=== PATIENT | male | born 1950 | race Caucasian/White ===

== ENCOUNTER 2017-03-09 09:20 | Day surgery (SDC) | payer MEDICARE, BC ==
[2017-03-07 11:25] VITALS: BMI 27.1
[~2017-03-09 09:20] MED LIST: LACTATED RINGERS 1,000 ML IV SCH
[2017-03-09 10:02] VITALS: TEMP 98.5
[2017-03-09] MEDS ORDERED: LIDOCAINE 1% 20 ML VIAL (10MG/ML) FOR IV START INTRADERMA ONE (10:15)
[2017-03-09] MEDS ORDERED: PROPOFOL 10 MG/ML 20 ML VIAL IV ONE (12:17)
--- NOTE | 2017-03-09 12:27 | P.GSHP ---
History of Present Illness H&P Date: 03/09/17 Chief Complaint: GI bleed This is a 66-year-old male referred from that [facility]. Patient resents today for EGD colonoscopy. He is found have evidence of blood in his stool. Past Medical History Past Medical History: Hypertension Additional Past Medical History / Comment(s): IRREGULAR HEART RATE History of Any Multi-Drug Resistant Organisms: None Reported Past Surgical History: Appendectomy, Hernia Repair, Joint Replacement, Orthopedic Surgery Additional Past Surgical History / Comment(s): RT CHINO X 2. BECKY PROCEDURES. TENDON REPAIRS. EXPLORATORY LAP. Past Anesthesia/Blood Transfusion Reactions: No Reported Reaction Smoking Status: Current some day smoker - Past Family History Mother Family Medical History: Cancer Medications and Allergies Home Medications Medication Instructions Recorded Confirmed Type Aspirin [Adult Low Dose Aspirin EC] 81 mg PO DAILY 03/07/17 03/09/17 History Atenolol [Tenormin] 25 mg PO DAILY 03/07/17 03/09/17 History Rosuvastatin Calcium [Crestor] 40 mg PO HS 03/07/17 03/09/17 History Allergies Allergy/AdvReac Type Severity Reaction Status Date / Time No Known Allergies Allergy Verified 03/07/17 11:19 Surgical - Exam Vital Signs Temp Pulse Resp BP Pulse Ox 98.5 F 50 L 16 165/93 98 03/09/17 09:58 03/09/17 09:58 03/09/17 09:58 03/09/17 09:58 03/09/17 09:58 - General well developed, no distress - Eyes PERRL - ENT normal pinna - Neck no masses - Respiratory normal expansion - Cardiovascular Rhythm: regular - Abdomen Abdomen: soft, non tender Assessment and Plan Plan: GI bleed. We'll perform EGD and colonoscopy.
--- NOTE | 2017-03-09 12:40 | P.OP ---
Date of Procedure: 03/09/17 Preoperative Diagnosis: GI bleed Postoperative Diagnosis: Antral gastritis Normal colon Procedure(s) Performed: EGD Colonoscopy Anesthesia: MAC Surgeon: Carlos Prado Pathology: other (Antrum) Condition: stable Disposition: PACU Description of Procedure: PROCEDURE: The patient was placed on the endoscopy table in the lateral position. Digital rectal examination was performed which revealed no abnormalities. The prostate was symmetrical without nodules. Flexible colonoscope was then placed in the patient's anus and passed throughout the entire colon. The ileocecal valve was visualized. The cecum, ascending, transverse, descending and sigmoid colon were normal. The rectum was normal as well. There were no masses, polyps or diverticula noted in the entire colon. Next, the gastroscope placed oropharynx passed in the esophagus and stomach. The scope was then placed through the pylorus. The first and second portion of the duodenum appeared normal. Scope was then brought back the antrum and this appeared mildly inflamed. A biopsies performed. The scope was unretroflexed and remainder stomach appeared normal. There was no hiatal hernia. The GE junction was at 440 cm. The distal esophagus appeared normal. The proximal esophagus appeared normal. Scope was withdrawn.
[2017-03-09 12:57] VITALS: RESP 16
[2017-03-09 13:16] VITALS: BP 138/77; PULSE 51
== END 2017-03-09 13:35 | disposition home or self-care (01) ==
LOC: ORWHC2ENDO 09:20
PROVIDERS: ATTEND Surgery
DX: K29.60 Other gastritis without bleeding (principal); K92.2 Gastrointestinal hemorrhage, unspecified; I10 Essential (primary) hypertension; F17.200 Nicotine dependence, unspecified, uncomplicated; Z79.82 Long term (current) use of aspirin; Z79.899 Other long term (current) drug therapy
CPT/HCPCS: 88305; 45380; 43239; J2704

== ENCOUNTER → 2017-12-24 | Day surgery (SDC) | payer MEDICARE, BC ==
[2017-12-19 11:01] VITALS: BMI 27.1
[~2017-12-24] MED LIST changes: +ALPRAZolam 0.25 MG TAB PO PRN; +ALPRAZolam 0.5 MG TAB PO PRN; +ASPIRIN 325 MG TAB PO STA; +ATENOLOL 25 MG TAB PO SCH; +ATORVASTATIN 80 MG TAB PO STA; +FERROUS SULFATE 325 MG TAB PO SCH; +HEPARIN SODIUM 1,000 UN/ML (10ML VL) IV ONE; +HEPARIN SODIUM 1,000 UN/ML (10ML VL) ONE; +IOPAMIDOL-370 125ML BTL INJ ONE; -LACTATED RINGERS 1,000 ML IV SCH; +LIDOCAINE 2% SYG (PF) 100 MG/5 ML MISCELLANE ONE; +MIDAZOLAM 2 MG/2 ML VIAL ONE; +NITROGLYCERIN SL TABS 0.4 MG TAB SUBLINGUAL PRN; +NON-FORMULARY DRUG (Aspirin [Adult Low Dose Aspirin Ec] 81 MG) PO SCH; +NON-FORMULARY DRUG (Celecoxib 200 MG) PO SCH; +NON-FORMULARY DRUG (Rosuvastatin Calcium [Crestor] 40 MG) PO SCH; +NON-FORMULARY DRUG (Ubidecarenone [Co Q-10] 100 MG) PO SCH; +RX INFO: IV CONTRAST WAS GIVEN 1 EACH MISC MISCELLANE PRN; +SODIUM CHLORIDE 0.9% 1,000 ML IV SCH; +SODIUM CHLORIDE 0.9% 1,000 ML in EMPTY BAG 1 BAG IV ONE; +VERAPAMIL 2.5 MG/ML 2 ML AMP ONE; +fentaNYL (PF) 50 MCG/ML 2 ML AMP IV ONE; +fentaNYL (PF) 50 MCG/ML 2 ML AMP ONE
[2017-12-24 07:00] VITALS: TEMP 97.8
[2017-12-24] MEDS: MIDAZOLAM 2 MG/2 ML VIAL IV ONE ×2 (07:58→08:18)
[2017-12-24] MEDS: VERAPAMIL SYRINGE (5 MG/10 ML) INTRAARTER ONE ×2 (07:59→08:04)
[2017-12-24 09:06] VITALS: RESP 18
--- NOTE | 2017-12-24 10:17 | CC ---
CARDIAC CATHETERIZATION REPORT Mr. Campa is a 67-year-old male with known history of hyperlipidemia, history of coronary artery disease, status post stenting of the left circumflex in 1996, who has been having some symptoms of dyspnea on exertion. He underwent a myocardial perfusion imaging that revealed inferobasal and basal lateral wall defect of small size. In view of his symptoms and his history, recommendations were made regarding cardiac catheterization. The procedure as well as the risks and the complications were discussed with the patient who is in full understanding and agreement. 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 Using Xylocaine anesthesia in the Seldinger technique, a a 6-Slovak sheath was introduced in the right radial artery. Selective right and left coronary angiography performed using 5-Slovak, 3.5 bend right and left Yuliana catheter and a 5-Slovak multipurpose catheter. Images of the coronary arteries including hemiaxial views were obtained. Following that, the multipurpose catheter was used to cross the aortic valve and pressures were calculated. Following that, catheter and sheath were removed. Hemostasis was obtained with deployment of a TR band. There was no immediate complication. Patient was returned to his room in stable condition. Of note, the patient received 4500 units of intravenous heparin as well as intra-arterial verapamil. FINDINGS: FLUOROSCOPY: There is calcification involving all the coronary arteries. LEFT MAIN: This is almost nonexistent vessel that bifurcates right away to LAD and left circumflex. LAD: This is a calcified vessel, reaching toward the apex with a wraparound apex segment giving rise to small diagonal branch. The LAD proximally is calcified has 50% plaque eccentric. The rest of the vessel has no high-grade stenosis. LEFT CIRCUMFLEX: This is a nondominant vessel giving rise to 2 large obtuse marginal branches. The left circumflex has diffuse intimal disease with area of stenosis up to 30% to 40% without any evidence of high-grade stenosis. RIGHT CORONARY ARTERY: This is a dominant small caliber vessel diffusely diseased, has diffuse intimal disease without any evidence of high-grade stenosis. LEFT VENTRICULOGRAM: Left ventriculogram was not performed. HEMODYNAMICS: There was no gradient across the aortic valve. The left ventricular end- diastolic pressure was 16 to 18 mmHg. CONCLUSION: 1. Calcified coronary arteries. 2. Moderate plaque in the proximal left anterior descending artery. 3. Mild to moderate disease in the circumflex and the right coronary artery. RECOMMENDATION: In view of finding anatomy, I recommend continue medical therapy with aggressive coronary risk modification that has been initiated. Those findings and recommendation were discussed with the patient and his family and they are in full understanding and agreement. DURATION OF PROCEDURE: 30 minutes. RONNY / GEORGIE: [id number] / SHARIF
--- NOTE | 2017-12-24 10:23 | LTR ---
December 24, 2017 Re: Franco Campa Dear Dr. Thornton: I had the opportunity to perform cardiac catheterization on Mr. Campa on at [facility] on the 24 of December and a full copy of the procedure note will be forwarded to you. In brief, he was found to have mild to moderate triple-vessel coronary artery disease without any evidence of high-grade stenosis and based on those findings I recommend continuing medical therapy with aggressive coronary risk modification you have initiated. Thank you again for allowing me the opportunity to participate in his care. Please feel free to call for any questions. Sincerely yours, MD VINNIE ChampionL / CATRACHON: [id number] /
[2017-12-24 10:35] VITALS: BP 112/64; PULSE 47
== END | disposition home or self-care (01) ==
LOC: CATHCVL 06:13
PROVIDERS: ATTEND Internal Medicine Interventional Cardiology
DX: I25.10 Atherosclerotic heart disease of native coronary artery without angina pectoris (principal); R94.39 Abnormal result of other cardiovascular function study; Z95.5 Presence of coronary angioplasty implant and graft; E78.2 Mixed hyperlipidemia; F17.290 Nicotine dependence, other tobacco product, uncomplicated; Z79.82 Long term (current) use of aspirin; Z79.899 Other long term (current) drug therapy
CPT/HCPCS: 93458; C1894; C1769; J2250; J2001; J3010; J1644; Q9967

== ENCOUNTER → 2019-01-04 | Outpatient (CLI) | payer MEDICARE, BC ==
[2019-01-04 13:17] LABS: HCT 39.9 % (39.0-53.0); HGB 13.3 gm/dL (13.0-17.5); MCH 30.8 pg (25.0-35.0); MCHC 33.4 g/dL (31.0-37.0); MCV 92.1 fL (80.0-100.0); Mean Platelet Volume 7.3; Platelet Count 161 k/uL (150-450); RBC 4.33 m/uL (4.30-5.90); RDW 13.3 % (11.5-15.5); WBC 5.4 k/uL (3.8-10.6)
[2019-01-04 13:20] LABS: Appearance,Urine Clear (Clear); Bilirubin,Urine Negative (Negative); Blood,Urine Negative (Negative); Color,Urine Yellow; Glucose,Urine (UA) Negative (Negative); Ketones,Urine Negative (Negative); Leukocyte Esterase,Urine Negative (Negative); Nitrite,Urine Negative (Negative); PH, Urine 5.5 (5.0-8.0); Protein,Urine Negative (Negative); Specific Gravity,Urine 1.025 (1.001-1.035); Urobilinogen,Urine <2.0 mg/dL (<2.0)
[2019-01-04 13:37] LABS: INR 0.9 (<1.2); Partial Thromboplastin Time 23.7 sec (22.0-30.0); Prothrombin Time 10.1 sec (9.0-12.0)
[2019-01-04 23:32] LABS: African American GFR (CKD) 104.9 (60.0-200.0); Albumin 4.2 g/dL (3.80-4.90); Albumin/Globulin Ratio 2.63 (1.60-3.17); Anion Gap 7.3 mmol/L (4.00-12.00); BUN/Creat Ratio 21.25 Ratio (12.00-20.00); Calcium 8.8 mg/dL (8.7-10.3); Carbon Dioxide 25.7 mmol/L (21.6-31.8); Globulin 1.6 g/dL (1.6-3.3); Potassium 4.2 mmol/L (3.5-5.5); Total Bilirubin 0.8 mg/dL (0.2-1.2); Total Protein 5.8 g/dL (6.2-8.2)
== END ==
LOC: LABMAIN 12:29
PROVIDERS: ATTEND Orthopaedic Surgery
DX: Z01.812 Encounter for preprocedural laboratory examination (principal)
CPT/HCPCS: 36415; 80053; 81003; 85027; 85610; 85730; 87070

== ENCOUNTER 2019-01-28 05:31 | Day surgery (SDC) | payer MEDICARE, BC ==
[2019-01-22 10:38] VITALS: BMI 27.8
[~2019-01-28 05:31] MED LIST changes: +ACETAMINOPHEN TAB 500 MG TAB PO ONE; -ALPRAZolam 0.25 MG TAB PO PRN; -ALPRAZolam 0.5 MG TAB PO PRN; -ASPIRIN 325 MG TAB PO STA; -ATENOLOL 25 MG TAB PO SCH; -ATORVASTATIN 80 MG TAB PO STA; +DEXAMETHASONE SOD PHOSPHATE 10 MG/ML 1 ML VIAL IV ONE; -FERROUS SULFATE 325 MG TAB PO SCH; -HEPARIN SODIUM 1,000 UN/ML (10ML VL) IV ONE; -HEPARIN SODIUM 1,000 UN/ML (10ML VL) ONE; +HYDROmorphone 0.5 MG/0.5 ML SYRINGE IVP PRN; -IOPAMIDOL-370 125ML BTL INJ ONE; +LACTATED RINGERS 1,000 ML IV SCH; +LIDOCAINE 1% 20 ML VIAL (10MG/ML) FOR IV START INTRADERMA PRN; -LIDOCAINE 2% SYG (PF) 100 MG/5 ML MISCELLANE ONE; +MELOXICAM 7.5 MG TAB PO ONE; +MIDAZOLAM 2 MG/2 ML VIAL IV PRN; -MIDAZOLAM 2 MG/2 ML VIAL ONE; -NITROGLYCERIN SL TABS 0.4 MG TAB SUBLINGUAL PRN; -NON-FORMULARY DRUG (Aspirin [Adult Low Dose Aspirin Ec] 81 MG) PO SCH; -NON-FORMULARY DRUG (Celecoxib 200 MG) PO SCH; -NON-FORMULARY DRUG (Rosuvastatin Calcium [Crestor] 40 MG) PO SCH; -NON-FORMULARY DRUG (Ubidecarenone [Co Q-10] 100 MG) PO SCH; +ONDANSETRON 4 MG/2 ML VIAL IVP ONE; -RX INFO: IV CONTRAST WAS GIVEN 1 EACH MISC MISCELLANE PRN; +SCOPOLAMINE 1.5MG/72HR PATCH TRANSDERM ONE; -SODIUM CHLORIDE 0.9% 1,000 ML IV SCH; -SODIUM CHLORIDE 0.9% 1,000 ML in EMPTY BAG 1 BAG IV ONE; +TRANEXAMIC ACID 1,000 MG in SODIUM CHLORIDE 0.9% 100 ML IVPB ONE; -VERAPAMIL 2.5 MG/ML 2 ML AMP ONE; -fentaNYL (PF) 50 MCG/ML 2 ML AMP IV ONE; -fentaNYL (PF) 50 MCG/ML 2 ML AMP ONE
[2019-01-28] MEDS ORDERED: ROPIVACAINE 246.25 MG, EPINEPHrine 0.5 MG, KETOROLAC 30 MG, cloNIDine HCL/PF 80 MCG, WA... MISCELLANE ONE ×5 (06:06)
[2019-01-28] MEDS ORDERED: fentaNYL (PF) 50 MCG/ML 2 ML AMP IV ONE (06:45)
[2019-01-28] MEDS ORDERED: MIDAZOLAM (PF) 2 MG/2 ML VIAL IV ONE (06:45)
[2019-01-28] MEDS ORDERED: MAGNESIUM HYDROXIDE 2,400 MG/10 ML CUP PO PRN (06:56)
[2019-01-28] MEDS ORDERED: NA PHOS,M-B/NA PHOS,DI-BA 133 ML ENEMA RECTAL PRN (06:56)
[2019-01-28] MEDS ORDERED: DIAZEPAM 5 MG TAB PO PRN (06:56)
[2019-01-28] MEDS ORDERED: NALOXONE 0.4 MG/ML 1 ML VIAL IV PRN (06:56)
[2019-01-28] MEDS ORDERED: BISACODYL 10 MG SUPP RECTAL PRN (06:56)
[2019-01-28] MEDS ORDERED: ONDANSETRON 4 MG/2 ML VIAL IVP PRN (06:56)
[2019-01-28] MEDS ORDERED: hydrOXYzine PAMOATE 25 MG CAP PO PRN (06:56)
[2019-01-28] MEDS ORDERED: HYDROmorphone 0.5 MG/0.5 ML SYRINGE IVP PRN ×3 (06:56)
[2019-01-28] MEDS ORDERED: traMADol 50 MG TAB PO PRN (06:59)
[2019-01-28] MEDS ORDERED: KETAMINE 10 MG/ML 20 ML VIAL ONE (07:01)
[2019-01-28] MEDS ORDERED: TRANEXAMIC ACID 1,000 MG/10 ML VIAL ONE (07:01)
[2019-01-28] MEDS ORDERED: PROPOFOL 10 MG/ML 20 ML VIAL IV ONE (07:01)
[2019-01-28] MEDS ORDERED: SODIUM CHLORIDE 0.9% 100 ML BAG ONE (07:01)
[2019-01-28] MEDS ORDERED: ceFAZolin 3,000 MG in SODIUM CHLORIDE 0.9% IRRIGATIO 3,000 ML IRRIGATION ONE (07:06)
[2019-01-28] MEDS ORDERED: ROPIVACAINE 0.2%-NS ON-Q PUMP 1,090 MG, EMPTY PAIN BALL 1 EACH MISCELLANE PRN (08:23)
[2019-01-28] MEDS ORDERED: LACTATED RINGERS 1,000 ML IV ONE (08:27)
--- NOTE | 2019-01-28 08:30 | P.ANPRN ---
Procedure Note - Anesthesia - Nerve Block Performed Left Adductor Canal Infusion Time Out Performed: Yes Date of Procedure: 01/28/19 Procedure Start Time: 06:45 Procedure Stop Time: 06:53 Location of Patient Procedure: PreOp Indication: Acute Post-Operative Pain Sedation Type: Sedate with meaningful contact maintained Preparation: Sterile Prep, Sterile Dressing Position: Supine Catheter: Indwelling Needle Types: Pajunk Needle Gauge: 18 Technique: Ultrasound Injectate: 0.5% Ropivacaine (see comment for volume) (20ml w/ decadron 10 mg)
--- NOTE | 2019-01-28 08:44 | P.OP ---
Date of Procedure: 01/28/19 Preoperative Diagnosis: Severe osteoarthritis left knee Postoperative Diagnosis: Severe osteoarthritis left knee Procedure(s) Performed: Left total knee arthroplasty using the Zeristae patient specific guides Implants: Carrasquillo and Nephew Journey II CR Oxinium cruciate retaining femoral component size 6, left Carrasquillo & Nephew Journey left nonporous tibial baseplate size 6 Carrasquillo & Nephew Journey II, XLPE CR articular insert, size 9 mm, Size 5-6 left Carrasquillo & Nephew Journey BCS resurfacing oval patellar component, 35 mm All components were cemented using Palacos R bone cement. [employer] patient specific guides The articulation is Oxinium on polyethylene. Anesthesia: spinal Surgeon: Morgan Soto Reliability Specialist #1: Marcella Hewitt Estimated Blood Loss (ml): 50 Pathology: other (Bone and cartilage) Condition: stable Disposition: PACU Indications for Procedure: After failure of conservative treatment we discussed the surgical and nonsurgical treatment options at length. Patient wishes to proceed with a total knee arthroplasty. Complications specific to this procedure were discussed at length, including but not limited to infection, bleeding, stiffness, and nerve injury. Patient is aware of all these complications and informed consent was obtained Operative Findings: The operative findings are consistent with severe osteoarthritis the left knee Description of Procedure: Patient was seen in the preoperative area consent was reviewed and operative site was marked with a skin marker. An adductor canal pain catheter was placed by anesthesia in the preoperative area. Patient was then brought to the operating room and given preoperative antibiotics intravenously. A spinal anesthetic was administered by the anesthesia department. A tourniquet was placed on the upper thigh and the lower extremity was prepped and draped in usual sterile fashion. A gram of transexamic acid was given. A universal timeout was then performed which confirmed the patient's name, surgical site, ALLERGIES, and consent. The lower extremity was then exsanguinated and tourniquet was inflated to 250 mmHg. A standard and anterior midline approach to the knee was performed. The skin and subcutaneous tissue was dissected down to the patellar tendon. A medial parapatellar arthrotomy was then performed. The knee was then extended, the patellar was everted, and the knee was again flexed. Anterior horns of both menisci were excised, and a release was performed to the posterior medial aspect of the knee. On gross visual inspection, there was complete loss of articular cartilage in the medial and patellofemoral joint spaces. There was also significant cartilage damage in the lateral compartment. There were multiple periarticular osteophytes. The patient specific guide was placed on the distal femur, and pinned in place. Using the patient specific guide, the distal femoral cut was performed. The cutting block was then removed and the cut was checked for flatness. The appropriate 5-in-1 cutting block was then pinned in place through the holes that were drilled through the patient specific guide. The anterior condyles were cut without notching. The posterior and chamfer cuts were performed while protecting the collateral ligaments. The cutting block was then removed. Attention was then directed to the tibia. The remaining ACL was removed with a Ronguer, and the tibia was then gently subluxed forward with a large bent knee retractor. Any remaining menisci was excised. The posterior lateral corner was cauterized in order to cauterize the lateral geniculate artery. The patient specific guide for the tibia was then placed and was held in place with pins. Pinholes were then placed for rotation of the tibial component as well. Proximal tibia was then cut and sized. Next trials were then placed with the appropriate-sized insert. The knee was able to fully extend and flex to 130 and was stable throughout all range of motion. The knee was then extended, patella everted. Patella was then measured, and then using an osteotomy guide, the patella was cut at the appropriate level. The patella was then measured and drilled and the patella trial was then placed. The knee was then taken through range of motion with the patella trial and the patella tracked normally. The knee was then extended patella trial was then removed and the patella was everted. Knee was then flexed and lug holes were drilled through the femoral trial and the femoral trial was then removed. The tibial was then exposed, and the tibial broach guide was then pinned in place after it was set for the appropriate rotation to allow for the most coverage without overhang. The tibia was then reamed and broached. The cut surfaces of bone were then irrigated with pulsatile lavage. The posterior structures were injected with the ropivacaine solution. The knee was also irrigated with Irrisept solution. The components were then opened, the c ement was mixed, and the components were then cemented in place. The cement was allowed to harden with the knee in full extension. While the cement was hardening, the remaining soft tissues were then injected with a ropivacaine solution, which consisted of 246.25 mg of ropivacaine, 0.5 mg of epinephrine, 30 mg of Toradol, 80 g of clonidine, and 48.45 mL of sterile water, for a total of 100 mL of fluid injected. After the cemented hardened. The tourniquet was released, and hemostasis was obtained. A second gram of transexamic acid was given. The knee was again irrigated. The knee was again taken through range of motion and found to be stable throughout all range of motion of 0-130, and the patella tracked normally. The fascia was then closed with #2 strata fix suture. The subcutaneous tissue was closed with 3-0 Vicryl and 3-0 strata fix. Dermabond glue was used for the skin and placed with the knee in flexion. The patient was placed in a sterile silver dressing. Patient was then transferred to recovery room in stable condition. The anesthetic assistant ALFA Ng was required due the complexity surgery and the need for a skilled surgical resident. She assisted in positioning, draping, retraction, and closure of the wound.
--- NOTE | 2019-01-28 09:48 | XR ---
EXAMINATION TYPE: XR knee limited LT DATE OF EXAM: 01/28/2019 CLINICAL HISTORY: Left knee pain and arthritis status post total knee replacement. TECHNIQUE: Portable AP and crosstable lateral views of the left knee are obtained immediately postop eratively. COMPARISON: None FINDINGS: Metallic hardware from total left knee arthroplasty is seen and appears satisfactory in al ignment and position. There is evidence of recent surgery with diffuse subcutaneous gas and soft tis durga swelling noted. IMPRESSION: METALLIC HARDWARE FROM TOTAL LEFT KNEE ARTHROPLASTY IS SATISFACTORY IN ALIGNMENT.
[2019-01-28] MEDS: SODIUM CHLORIDE 0.9% 1,000 ML IV SCH ×2 (10:24→16:01)
--- NOTE | 2019-01-28 13:14 | P.CONS ---
History of Present Illness - Reason for Consult Recommendation regarding antihypertensive medications - History of Present Illness Patient was admitted for elective left Opacities is no known surgeries passing is clinically doing well no pain. Patient is on atenolol for his cardiac arrhythmia and patient heart rate is always and 9 hypertension 55 has been taking this medication for long time patient had a coronary artery disease with stenting 20 years ago. Review of Systems REVIEW OF SYSTEMS: CONSTITUTIONAL: No fever, no malaise, no fatigue. HEENT: No recent visual problems or hearing problems. Denied any sore throat. CARDIOVASCULAR: No chest pain, orthopnea, PND, no palpitations, no syncope. PULMONARY: No shortness of breath, no cough, no hemoptysis. GASTROINTESTINAL: No diarrhea, no nausea, no vomiting, no abdominal pain. NEUROLOGICAL: No headaches, no weakness, no numbness. HEMATOLOGICAL: Denies any bleeding or petechiae. GENITOURINARY: Denies any burning micturition, frequency, or urgency. MUSCULOSKELETAL/RHEUMATOLOGICAL: Denies any joint pain, swelling, or any muscle pain. ENDOCRINE: Denies any polyuria or polydipsia. The rest of the 14-point review of systems is negative. 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 abd hernia X 2, R Hip replacement. BECKY PROCEDURES. TENDON REPAIRS. EXPLORATORY LAP. gastric resection Past Anesthesia/Blood Transfusion Reactions: No Reported Reaction Additional Past Anesthesia/Blood Transfusion Reaction / Comm: no hx blood transfusion Date of Last Stent Placement:: ? Past Psychological History: No Psychological Hx Reported Smoking Status: Former smoker Past Alcohol Use History: Occasional Additional Past Alcohol Use History / Comment(s): QUIT SMOKING CIGARETTES 1972. NOW SMOKES CIGARS ON OCCASSION Past Drug Use History: None Reported - Past Family History Mother Family Medical History: Cancer Additional Family Medical History / Comment(s): liver CA Medications and Allergies Home Medications Medication Instructions Recorded Confirmed Type Aspirin [Adult Low Dose Aspirin EC] 81 mg PO QAM 03/07/17 01/28/19 History Atenolol [Tenormin] 25 mg PO QAM 03/07/17 01/28/19 History Rosuvastatin Calcium [Crestor] 40 mg PO HS 03/07/17 01/28/19 History Celecoxib [CeleBREX] 200 mg PO SUMOWEFR 12/19/17 01/28/19 History Ferrous Sulfate [Feosol] 325 mg PO MOTH 12/19/17 01/28/19 History Ubidecarenone [Co Q-10] 100 mg PO QAM 12/19/17 01/28/19 History Multivitamins, Thera [Multivitamin 1 tab PO DAILY 01/22/19 01/28/19 History (formulary)] Allergies Allergy/AdvReac Type Severity Reaction Status Date / Time No Known Allergies Allergy Verified 01/28/19 05:54 Physical Exam Vitals: Vital Signs Temp Pulse Pulse Resp BP BP Pulse Ox 01/28/19 12:15 49 L 135/78 97 01/28/19 12:00 49 L 129/73 93 L 01/28/19 11:45 45 L 126/74 95 01/28/19 11:30 49 L 129/71 93 L 01/28/19 11:15 44 L 124/73 95 01/28/19 11:00 49 L 129/78 95 01/28/19 10:45 47 L 132/81 95 01/28/19 10:30 49 L 133/74 96 01/28/19 10:15 97.7 F 46 L 14 123/71 97 01/28/19 09:47 50 L 18 96 01/28/19 09:32 48 L 18 118/71 97 01/28/19 09:16 52 L 16 114/62 94 L 01/28/19 09:04 96.7 F L 54 L 12 116/62 94 L 01/28/19 06:58 53 L 16 155/86 98 01/28/19 06:15 96.9 F L 50 L 16 154/77 97 Intake and Output 01/27/19 01/28/19 01/28/19 22:59 06:59 14:59 Intake Total 200 1151 Output Total 50 Balance 200 1101 Intake: IV 200 1151 Output: Estimated Blood Loss 50 PHYSICAL EXAMINATION: GENERAL: The patient is alert and oriented x3, not in any acute distress. Well developed, well nourished. HEENT: Pupils are round and equally reacting to light. EOMI. No scleral icterus. No conjunctival pallor. Normocephalic, atraumatic. No pharyngeal erythema. No thyromegaly. CARDIOVASCULAR: S1 and S2 present. No murmurs, rubs, or gallops. PULMONARY: Chest is clear to auscultation, no wheezing or crackles. ABDOMEN: Soft, nontender, nondistended, normoactive bowel sounds. No palpable organomegaly. MUSCULOSKELETAL: Left knee is post surgically packed EXTREMITIES: No cyanosis, clubbing, or pedal edema. NEUROLOGICAL: Gross neurological examination did not reveal any focal deficits. SKIN: No rashes. Assessment and Plan Plan: -Hypertension with a history of cardiac exam because of which patient is on atenolol which will be resumed. blood pressures fairly stable. -Hyperlipidemia Hyperlipidemia Coronary artery disease his baby aspirin is being held and patient is on DVT prophylaxis with the full strength aspirin twice a day. -left knee arthroplasty pain management due to prophylaxis as per primary service
[2019-01-28 20:21] VITALS: RESP 18
[2019-01-28] MEDS: ASPIRIN 325 MG TAB PO SCH (20:59)
[2019-01-28] MEDS ORDERED: SENNOSIDES-DOCUSATE SODIUM 1 EACH TAB PO SCH (21:00)
[2019-01-28] MEDS ORDERED: ATORVASTATIN 80 MG TAB PO SCH (21:00)
[2019-01-29] MEDS: traMADol 50 MG TAB PO PRN ×2 (06:00→12:14)
[2019-01-29 07:44] VITALS: TEMP 98.7
--- NOTE | 2019-01-29 08:17 | P.DS ---
Providers Expected date of discharge: 01/29/19 Attending physician: Morgan Soto Consults: 01/28/19 06:56 Consult Physician Routine Consulting Provider: Stephanie Osorio Consult Reason/Comments: medical management Do you want consulting provider notified?: Yes Primary care physician: Natalie Thornton - Discharge Diagnosis(es) (1) Osteoarthritis of left knee Current Visit: Yes Status: Acute (2) Status post total left knee replacement Current Visit: Yes Status: Acute Hospital Course: This is a 68-year-old male with known history of degenerative arthritis of the left knee. The patient presents for evaluation. After discussion and consideration patient elects to proceed with total knee arthroplasty. The patient is seen preoperatively by Dr. Soto and medically cleared for surgery by their primary care physician. Patient is admitted to [facility] on 01/28/2019 for total knee arthroplasty. The procedures performed without complication or sequelae. The patient is doing well postoperatively. Labs and vital signs are stable on day of discharge. On day of discharge patient's knee incision is healing well. There is minimal erythema. There is no drainage noted at this time. There is minimal soft tissue swelling to the knee. Patient has full foot and ankle motion without difficulty or pain. Calf is soft and nontender to palpation. Neurovascular status to the left lower extremity is intact. Patient is discharged home in good condition. Opioid start talking form is reviewed and signed at patient bedside. Please see med rec for accurate list of home medications. Plan - Discharge Summary Discharge Rx Participant: No New Discharge Prescriptions: New Aspirin 325 mg PO BID #60 tab Sennosides [Senokot] 1 tab PO BID #60 tablet traMADol HCl [Ultram] 1 - 2 tab PO Q6H PRN #56 tab PRN Reason: Pain No Action Rosuvastatin Calcium [Crestor] 40 mg PO HS Atenolol [Tenormin] 25 mg PO QAM Aspirin [Adult Low Dose Aspirin EC] 81 mg PO QAM Ferrous Sulfate [Feosol] 325 mg PO MOTH Celecoxib [CeleBREX] 200 mg PO SUMOWEFR Ubidecarenone [Co Q-10] 100 mg PO QAM Multivitamins, Thera [Multivitamin (formulary)] 1 tab PO DAILY Discharge Medication List Aspirin [Adult Low Dose Aspirin EC] 81 mg PO QAM 03/07/17 [History] Atenolol [Tenormin] 25 mg PO QAM 03/07/17 [History] Rosuvastatin Calcium [Crestor] 40 mg PO HS 03/07/17 [History] Celecoxib [CeleBREX] 200 mg PO SUMOWEFR 12/19/17 [History] Ferrous Sulfate [Feosol] 325 mg PO MOTH 12/19/17 [History] Ubidecarenone [Co Q-10] 100 mg PO QAM 12/19/17 [History] Multivitamins, Thera [Multivitamin (formulary)] 1 tab PO DAILY 01/22/19 [History] Aspirin 325 mg PO BID #60 tab 01/29/19 [Rx] Sennosides [Senokot] 1 tab PO BID #60 tablet 01/29/19 [Rx] traMADol HCl [Ultram] 1 - 2 tab PO Q6H PRN #56 tab 01/29/19 [Rx] Follow up Appointment(s)/Referral(s): Morgan Soto DO [Doctor of Osteopathic Medicine] - 2 Weeks Activity/Diet/Wound Care/Special Instructions: Weightbearing as tolerated with a walker. CPM 5-6h daily. Leave dressing intact. May be removed by home care nurse or by patient in 10 days. May shower with dressing on. Please follow up with [facility] and call with any questions or concerns, . Discharge Disposition: HOME WITH HOME HEALTH SERVICES
[2019-01-29 08:19] LABS: Basophils % (A) 0 %; Eosinophils # (A) 0.1 k/uL (0-0.7); Eosinophils % (A) 1 %; HCT 36.7 % (39.0-53.0); HGB 12.3 gm/dL (13.0-17.5); Lymphocytes # (A) 1.4 k/uL (1.0-4.8); Lymphocytes % (A) 15 %; MCH 31.3 pg (25.0-35.0); MCHC 33.5 g/dL (31.0-37.0); MCV 93.4 fL (80.0-100.0); Mean Platelet Volume 7.5; Monocytes # (A) 0.7 k/uL (0-1.0); Monocytes % (A) 8 %; Neutrophils # (A) 6.6 k/uL (1.3-7.7); Neutrophils % (A) 74 %; Platelet Count 143 k/uL (150-450); RBC 3.93 m/uL (4.30-5.90); RDW 13.1 % (11.5-15.5); WBC 8.9 k/uL (3.8-10.6)
[2019-01-29] MEDS ORDERED: ATENOLOL 25 MG TAB PO SCH (09:00)
[2019-01-29] MEDS ORDERED: MELOXICAM 7.5 MG TAB PO SCH (09:00)
[2019-01-29] MEDS: ASPIRIN 325 MG TAB PO SCH (10:00)
[2019-01-29 10:04] VITALS: BP 144/70; PULSE 78
--- NOTE | 2019-01-29 11:53 | P.PN ---
Progress Note - Text Progress Note Date: 01/29/19 Patient without complaints. Pain controlled. Ambulating. Left adductor catheter site clean and dry. A/P POD # 1 s/p L TKA - doing well
--- NOTE | 2019-01-29 19:44 | PN ---
PROGRESS NOTE DATE OF SERVICE: 01/29/2019. This 68-year-old gentleman who was admitted after left total knee arthroplasty is improving significantly. No chest pain. No palpitations. No fever. EXAM: Alert and oriented times three. Pulse 54. Blood pressure 140/70, respiration 20, temperature is 98.7, pulse ox 98% on room air. HEENT: Conjunctivae normal. NECK: No jugular venous distention. CARDIOVASCULAR: S1, S2 muffled. RESPIRATIONS: Breath sounds diminished in the bases. No rhonchi. No crackles. ABDOMEN is soft, nontender. No mass palpable. LEGS status post left total knee arthroplasty. NERVOUS SYSTEM: No focal deficits. LABS: WBC 8.2, hemoglobin 12.2. ASSESSMENT: 1. Status post left total knee arthroplasty. 2. Hypertension. 3. Hyperlipidemia. 4. History of degenerative joint disease. 5. History of coronary artery disease/ stent. 6. Remote history of nicotine dependence. RECOMMENDATIONS AND DISCUSSION: In this 68-year-old gentleman who presented with multiple medical issues, at this time, I recommend to continue current medications, management and symptomatic treatment. Otherwise, at this time, I would recommend continue with home medications. DVT prophylaxis. Further recommendations per Orthopedic surgery. Further recommendations to follow. MMODL / IJN: [id number] /
[2019-01-30] MEDS ORDERED: FERROUS SULFATE 325 MG TAB PO SCH (12:00)
== END 2019-01-29 13:22 | disposition home health service (06) ==
LOC: OR 05:31 → 4SSUR 09:36 → EDSTATUS 11:25 → OR 01-29 13:22
PROVIDERS: ATTEND Orthopaedic Surgery
DX: M17.12 Unilateral primary osteoarthritis, left knee (principal); M25.762 Osteophyte, left knee; I25.10 Atherosclerotic heart disease of native coronary artery without angina pectoris; I11.9 Hypertensive heart disease without heart failure; E78.2 Mixed hyperlipidemia; Z95.5 Presence of coronary angioplasty implant and graft; Z90.3 Acquired absence of stomach [part of]; Z96.641 Presence of right artificial hip joint; Z82.49 Family history of ischemic heart disease and other diseases of the circulatory system; Z87.891 Personal history of nicotine dependence; Z97.3 Presence of spectacles and contact lenses; Z79.899 Other long term (current) drug therapy; Z79.82 Long term (current) use of aspirin; Z79.52 Long term (current) use of systemic steroids
CPT/HCPCS: 27447; 94760; 97116; 97161; 64448; 85025; 88300; 73560; C1713; C1776; C1772; J0171; J1100; J0690 ×2; J2405; J3010; J1885; J2795 ×2; J2704; J0735; J2250

== ENCOUNTER → 2019-02-14 | Outpatient (CLI) | payer MEDICARE, BC ==
--- NOTE | 2019-02-14 12:33 | US ---
EXAMINATION TYPE: US venous doppler duplex LE LT DATE OF EXAM: 02/14/2019 12:19 PM COMPARISON: NONE CLINICAL HISTORY: M25.562, I80.9. SIDE PERFORMED: TECHNIQUE: The lower extremity deep venous system is examined utilizing real time linear array sonog griselda with graded compression, doppler sonography and color-flow sonography. VESSELS IMAGED: External Iliac Vein (EIV) Common Femoral Vein Deep Femoral Vein Greater Saphenous Vein * Femoral Vein Popliteal Vein Small Saphenous Vein * Proximal Calf Veins (* superficial vessels) Left Leg: Negative for DVT Preliminary results given to Nicole at Dr. Bowles office IMPRESSION: 1. Left lower extremity ultrasound negative for deep venous thrombosis.
== END | disposition home or self-care (01) ==
LOC: RADUSWWP 11:12
PROVIDERS: ATTEND Orthopaedic Surgery
DX: M25.562 Pain in left knee (principal); I51.9 Heart disease, unspecified; I80.9 Phlebitis and thrombophlebitis of unspecified site; Z87.891 Personal history of nicotine dependence; Z47.1 Aftercare following joint replacement surgery; Z96.652 Presence of left artificial knee joint

== ENCOUNTER 2019-03-30 13:50 | Emergency (ER) | payer MEDICARE, BC ==
[2019-03-30] MEDS ORDERED: SODIUM CHLORIDE 0.9% 1,000 ML IV STA (14:34)
[2019-03-30] MEDS ORDERED: ONDANSETRON 4 MG/2 ML VIAL IVP STA (14:34)
[2019-03-30] MEDS ORDERED: KETOROLAC 30 MG/ML 1 ML VIAL IVP STA (14:34)
[2019-03-30 14:46] LABS: Basophils # (A) 0.1 k/uL (0-0.2); Basophils % (A) 1 %; Eosinophils # (A) 0.2 k/uL (0-0.7); Eosinophils % (A) 2 %; HCT 45.7 % (39.0-53.0); HGB 14.2 gm/dL (13.0-17.5); Lymphocytes % (A) 25 %; MCH 28.7 pg (25.0-35.0); MCHC 31.1 g/dL (31.0-37.0); MCV 92.2 fL (80.0-100.0); Mean Platelet Volume 7.1; Monocytes # (A) 0.4 k/uL (0-1.0); Monocytes % (A) 5 %; Neutrophils # (A) 5.1 k/uL (1.3-7.7); Neutrophils % (A) 63 %; Platelet Count 264 k/uL (150-450); RBC 4.95 m/uL (4.30-5.90); RDW 13.6 % (11.5-15.5)
[2019-03-30 14:53] LABS: Albumin 4.7 g/dL (3.5-5.0); Calcium 9.9 mg/dL (8.4-10.2); Potassium 4.5 mmol/L (3.5-5.1); Total Bilirubin 0.7 mg/dL (0.2-1.3); Total Protein 7.7 g/dL (6.3-8.2)
[2019-03-30 15:07] LABS: Appearance,Urine Cloudy (Clear); Bilirubin,Urine Negative (Negative); Blood,Urine Large (Negative); Budding Yeast,Urine Many /hpf; Color,Urine Red; Glucose,Urine (UA) Negative (Negative); Hyaline Casts,Urine 9 /lpf (0-2); Ketones,Urine 1+ (Negative); Leukocyte Esterase,Urine Trace (Negative); Mucus,Urine Many /hpf; Nitrite,Urine Negative (Negative); Protein,Urine 2+ (Negative); RBC,Urine >182 /hpf (0-5); Specific Gravity,Urine 1.027 (1.001-1.035)
--- NOTE | 2019-03-30 15:33 | CT ---
EXAMINATION TYPE: CT abdomen pelvis wo con DATE OF EXAM: 03/30/2019 COMPARISON: None HISTORY: Left flank pain CT DLP: 755.9 mGycm Automated exposure control for dose reduction was used. TECHNIQUE: Helical acquisition of images was performed from the lung bases through the pelvis. FINDINGS: Lung bases are clear. There is no pleural effusion. Heart size is normal. There are surgical clips at the gastroesophageal junction. There are surgical clips at the gastric an trum. Liver spleen pancreas gallbladder appear normal. Bile ducts are not dilated. There is no adrenal mass. Left kidney shows hydronephrosis and perinephric edema. There is left side hydroureter and 3 mm calculus at the left ureterovesical junction. Bladder distends smoothly. There i s no retroperitoneal adenopathy. There is 3 cm cortical cyst posterior right kidney. There is right h ip prosthesis. There is no free fluid in the pelvis. There is no mesenteric edema. There is no ascite s or free air. The bony structures are intact. There is no compression fracture. Bony pelvis is intac t. Appendix is not definitely seen. There is no sign of thickened appendix. There is moderate spinal stenosis at L4-5 due to mild degenerative spondylolisthesis and facet arthropathy. IMPRESSION: DISTAL LEFT URETERAL OBSTRUCTING CALCULUS WITH LEFT-SIDED HYDRONEPHROSIS AND HYDROURETER.
--- NOTE | 2019-03-30 16:25 | ED ---
Abdominal Pain HPI - General Chief Complaint: Abdominal Pain Stated Complaint: Kidney Stone Time Seen by Provider: 03/30/19 14:12 Source: patient Mode of arrival: ambulatory Limitations: no limitations - History of Present Illness Initial Comments: Patient is a 68-year-old male presenting to emergency department complaints of left flank pain 2 hours. Patient states the pain started suddenly a few hours ago and has progressed in nature. Patient states history of kidney stones in the past and this feels similar. Patient also complaining of nausea. Denies fever, chills. Patient states he did have episode of hematuria earlier today. Patient having regular bowel movements. Patient has no other complaints at this time. Upon arrival to ER, vital signs are normal. - Related Data Home Medications Medication Instructions Recorded Confirmed Aspirin [Adult Low Dose Aspirin EC] 81 mg PO QAM 03/07/17 01/28/19 Atenolol [Tenormin] 25 mg PO QAM 03/07/17 01/28/19 Rosuvastatin Calcium [Crestor] 40 mg PO HS 03/07/17 01/28/19 Celecoxib [CeleBREX] 200 mg PO SUMOWEFR 12/19/17 01/28/19 Ferrous Sulfate [Feosol] 325 mg PO MOTH 12/19/17 01/28/19 Ubidecarenone [Co Q-10] 100 mg PO QAM 12/19/17 01/28/19 Multivitamins, Thera [Multivitamin 1 tab PO DAILY 01/22/19 01/28/19 (formulary)] Previous Rx's Medication Instructions Recorded Aspirin 325 mg PO BID #60 tab 01/29/19 Sennosides [Senokot] 1 tab PO BID #60 tablet 01/29/19 traMADol HCl [Ultram] 1 - 2 tab PO Q6H PRN #56 tab 01/29/19 Ketorolac [Toradol] 10 mg PO Q8HR #15 tab 03/30/19 Ondansetron Odt [Zofran Odt] 4 mg PO Q8HR PRN #10 tab 03/30/19 Tamsulosin [Flomax] 0.4 mg PO DAILY #7 cap 03/30/19 Allergies Allergy/AdvReac Type Severity Reaction Status Date / Time No Known Allergies Allergy Verified 03/30/19 14:06 Review of Systems ROS Statement: Those systems with pertinent positive or pertinent negative responses have been documented in the HPI. ROS Other: All systems not noted in ROS Statement are negative. 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 abd hernia X 2, R Hip replacement. BECKY PROCEDURES. TENDON REPAIRS. EXPLORATORY LAP. gastric resection Past Anesthesia/Blood Transfusion Reactions: No Reported Reaction Additional Past Anesthesia/Blood Transfusion Reaction / Comment(s): no hx blood transfusion Date of Last Stent Placement:: ? Past Psychological History: No Psychological Hx Reported Smoking Status: Former smoker Past Alcohol Use History: Occasional Past Drug Use History: None Reported - Past Family History Mother Family Medical History: Cancer Additional Family Medical History / Comment(s): liver CA General Exam - General Exam Comments Initial Comments: GENERAL: Well-appearing, well-nourished and in mild distress secondary to pain. HEAD: Atraumatic, normocephalic. EYES: Pupils equal round and reactive to light, extraocular movements intact, sclera anicteric, conjunctiva are normal. ENT: TMs normal, nares patent, oropharynx clear without exudates. Moist mucous membranes. NECK: Normal range of motion, supple without lymphadenopathy or JVD. LUNGS: Breath sounds clear to auscultation bilaterally and equal. No wheezes rales or rhonchi. HEART: Regular rate and rhythm without murmurs, rubs or gallops. ABDOMEN: Mild left side abdomen tenderness, positive left CVA tenderness. Soft, normoactive bowel sounds. No guarding, no rebound. No masses appreciated. : Deferred EXTREMITIES: Normal range of motion, no pitting or edema. No clubbing or cyanosis. NEUROLOGICAL: Cranial nerves II through XII grossly intact. Normal speech, normal gait. PSYCH: Normal mood, normal affect. SKIN: Warm, Dry, normal turgor, no rashes or lesions noted. Limitations: no limitations Course Vital Signs 03/30/19 03/30/19 14:02 16:32 Temperature 97.9 F 98.0 F Pulse Rate 69 70 Respiratory 22 16 Rate Blood Pressure 183/65 141/76 O2 Sat by Pulse 97 99 Oximetry Medical Decision Making - Medical Decision Making Patient is a 68-year-old male presenting with left flank pain 2 hours. Patient has history kidney stones. Patient's vital signs are stable, afebrile. CBC and CMP are normal. UA reveals large amount of blood. CT the abdomen shows obstructing 3 mm left distal ureteral calculus with left-sided hydronephrosis and hydroureter. Patient was given fluids, Toradol, Zofran with improvement in symptoms. Patient is stable for discharge at this time. Patient will be discharged with Flomax, Toradol, Zofran for symptom control. Patient will follow up with urology next week. Patient is in agreement with this plan of care. Return parameters were discussed with the patient and he verbalized understanding. Case discussed with Dr. Nunes. - Lab Data Result diagrams: 03/30/19 14:14 03/30/19 14:14 Lab Results 03/30/19 03/30/19 03/30/19 Range/Units 14:14 14:14 14:55 WBC 8.0 (3.8-10.6) k/uL RBC 4.95 (4.30-5.90) m/uL Hgb 14.2 (13.0-17.5) gm/dL Hct 45.7 (39.0-53.0) % MCV 92.2 (80.0-100.0) fL MCH 28.7 (25.0-35.0) pg MCHC 31.1 (31.0-37.0) g/dL RDW 13.6 (11.5-15.5) % Plt Count 264 (150-450) k/uL Neutrophils % 63 % Lymphocytes % 25 % Monocytes % 5 % Eosinophils % 2 % Basophils % 1 % Neutrophils # 5.1 (1.3-7.7) k/uL Lymphocytes # 2.0 (1.0-4.8) k/uL Monocytes # 0.4 (0-1.0) k/uL Eosinophils # 0.2 (0-0.7) k/uL Basophils # 0.1 (0-0.2) k/uL Sodium 139 (137-145) mmol/L Potassium 4.5 (3.5-5.1) mmol/L Chloride 102 (98-107) mmol/L Carbon Dioxide 24 (22-30) mmol/L Anion Gap 13 mmol/L BUN 15 (9-20) mg/dL Creatinine 1.00 (0.66-1.25) mg/dL Est GFR (CKD-EPI)AfAm 88 (>60 ml/min/1.73 sqM) Est GFR (CKD-EPI)NonAf 76 (>60 ml/min/1.73 sqM) Glucose 120 H (74-99) mg/dL Calcium 9.9 (8.4-10.2) mg/dL Total Bilirubin 0.7 (0.2-1.3) mg/dL AST 31 (17-59) U/L ALT 25 (21-72) U/L Alkaline Phosphatase 99 (38-126) U/L Total Protein 7.7 (6.3-8.2) g/dL Albumin 4.7 (3.5-5.0) g/dL Amylase 46 (30-110) U/L Lipase 90 (23-300) U/L Urine Color Red Urine Appearance Cloudy (Clear) Urine pH 6.0 (5.0-8.0) Ur Specific [place] 1.027 (1.001-1.035) Urine Protein 2+ H (Negative) Urine Glucose (UA) Negative (Negative) Urine Ketones 1+ H (Negative) Urine Blood Large H (Negative) Urine Nitrite Negative (Negative) Urine Bilirubin Negative (Negative) Urine Urobilinogen 2.0 (<2.0) mg/dL Ur Leukocyte Esterase Trace H (Negative) Urine RBC >182 H (0-5) /hpf Hyaline Casts 9 H (0-2) /lpf Urine Mucus Many H (None) /hpf Urine Yeast (Budding) Many H (None) /hpf Disposition Clinical Impression: Left renal stone Disposition: HOME SELF-CARE Condition: Stable Instructions (If sedation given, give patient instructions): Kidney Stones (ED) Additional Instructions: Please return to the Emergency Department if symptoms worsen or any other concerns. Follow-up with urology as discussed. Prescriptions: Tamsulosin [Flomax] 0.4 mg PO DAILY #7 cap Ketorolac [Toradol] 10 mg PO Q8HR #15 tab Ondansetron Odt [Zofran Odt] 4 mg PO Q8HR PRN #10 tab PRN Reason: Nausea Is patient prescribed a controlled substance at d/c from ED?: No Referrals: Natalie Thornton MD [Primary Care Provider] - 1-2 days Glen Brennan MD [STAFF PHYSICIAN] - 1-2 days
--- NOTE | 2019-03-30 16:25 | XR ---
EXAMINATION TYPE: XR KUB DATE OF EXAM: 03/30/2019 COMPARISON: NONE HISTORY: Renal stone Pain TECHNIQUE: 2 views upright FINDINGS: There is no sign of intestinal obstruction or pneumoperitoneum. There is right hip prosthes is. There is no evidence of a mass. I see no definite calcifications over the kidneys. Lung bases are clear. IMPRESSION: Nonacute abdomen.
[2019-03-30 16:33] VITALS: BP 141/76; PULSE 70; RESP 16; TEMP 98
== END 2019-03-30 16:30 | disposition home or self-care (01) ==
LOC: EC 13:50
DX: N13.2 Hydronephrosis with renal and ureteral calculous obstruction (principal); E78.5 Hyperlipidemia, unspecified; I10 Essential (primary) hypertension; M19.90 Unspecified osteoarthritis, unspecified site; Z87.891 Personal history of nicotine dependence; Z79.1 Long term (current) use of non-steroidal anti-inflammatories (NSAID); Z79.82 Long term (current) use of aspirin; Z79.899 Other long term (current) drug therapy; Z90.49 Acquired absence of other specified parts of digestive tract; Z96.641 Presence of right artificial hip joint; Z80.0 Family history of malignant neoplasm of digestive organs
CPT/HCPCS: 36415; 80053; 82150; 83690; 85025; 81001; 74018; 74176; 99284; 96374; 96375; 96361; J2405; J1885

== ENCOUNTER 2024-03-24 09:00 | Inpatient (IN) | payer BC, MEDICARE ==
[2024-03-24] MEDS: SODIUM CHLORIDE 0.9% 1,000 ML IV STA (09:29)
[2024-03-24 09:48] LABS: Anisocytosis Slight; Basophils % (A) 1 %; Eosinophils # (A) 0.3 k/uL (0-0.7); Eosinophils % (A) 4 %; HCT 47.7 % (39.0-53.0); HGB 15.2 gm/dL (13.0-17.5); Lymphocytes % (A) 16 %; MCH 28.3 pg (25.0-35.0); MCHC 31.8 g/dL (31.0-37.0); MCV 89.1 fL (80.0-100.0); Monocytes # (A) 0.4 k/uL (0-1.0); Monocytes % (A) 6 %; Neutrophils # (A) 4.5 k/uL (1.3-7.7); Neutrophils % (A) 71 %; Platelet Count 183 k/uL (150-450); RBC 5.36 m/uL (4.30-5.90); RDW 16.4 % (11.5-15.5); WBC 6.3 k/uL (3.8-10.6)
--- NOTE | 2024-03-24 09:49 | ED ---
Chest Pain HPI - General Chief Complaint: Chest Pain Stated Complaint: Cancer Pt-chest pain Time Seen by Provider: 03/24/24 09:11 Source: patient, RN notes reviewed, old records reviewed Mode of arrival: ambulatory Limitations: no limitations - History of Present Illness Initial Comments: This is a 73-year-old male to the ER for evaluation of pain severe abdominal pain chest pain left-sided chest wall pain back pain which he believes is related to either cancer or his cancer treatment. MD Complaint: chest pain -: hour(s) Onset: during rest, during exertion Pain Location: substernal, left chest Pain Radiation: back Severity: severe Severity scale (1-10): 9 Quality: tightness, sharp Consistency: constant Improves With: nothing Worsens With: nothing Anginal Symptoms: sense of impending doom Other Symptoms: palpitations Treatments Prior to Arrival: none - Related Data Home Medications Medication Instructions Recorded Confirmed Aspirin [Adult Low Dose Aspirin EC] 81 mg PO DAILY 03/07/17 03/24/24 Rosuvastatin Calcium [Crestor] 40 mg PO HS 03/07/17 03/24/24 atenoloL [Tenormin] 12.5 mg PO DAILY 03/07/17 03/24/24 Ferrous Sulfate [Iron (65 MG 325 mg PO DAILY 12/19/17 03/24/24 Elemental)] Ubidecarenone [Co Q-10] 100 mg PO DAILY 12/19/17 03/24/24 Multivitamins, Thera [Multivitamin 1 tab PO DAILY 01/22/19 03/24/24 (formulary)] Acetaminophen Tab [Tylenol] 1,000 mg PO Q6HR PRN 03/24/24 03/24/24 Calcium/Magnesium (Unknown Dose) 1 tab PO DAILY 03/24/24 03/24/24 Ezetimibe [Zetia] 10 mg PO HS 03/24/24 03/24/24 Glimepiride [Amaryl] 1 mg PO DAILY 03/24/24 03/24/24 Glucosam/Pacheco-Msm1/C/Blu/Bosw 1 tab PO DAILY 03/24/24 03/24/24 [Gikmwgsgkbu-Hibyrzuessc-OHQ Tb] Ibuprofen [Motrin Ib] 400 mg PO BID 03/24/24 03/24/24 Selpercatinib [Retevmo] 160 mg PO DIRECTED 03/24/24 03/24/24 amLODIPine [Norvasc] 5 mg PO DAILY 03/24/24 03/24/24 hydrALAZINE HCL [Apresoline] 50 mg PO TID 03/24/24 03/24/24 ondansetron HCL [Zofran] 8 mg PO Q8H PRN 03/24/24 03/24/24 traMADol HCl [Ultram] 50 mg PO BID 03/24/24 03/24/24 Previous Rx's Medication Instructions Recorded Morphine Sulfate ER [Ms Contin] 15 mg PO Q12HR 7 Days #14 tab 03/25/24 Sennosides/Docusate Sodium 1 each PO HS PRN #20 tablet 03/25/24 [Senna-S 8.6-50 mg Tablet] Allergies Allergy/AdvReac Type Severity Reaction Status Date / Time No Known Allergies Allergy Verified 03/24/24 11:52 Review of Systems ROS Statement: Those systems with pertinent positive or pertinent negative responses have been documented in the HPI. ROS Other: All systems not noted in ROS Statement are negative. EKG Findings - EKG Comments: EKG Findings:: EKG is sinus tachycardia 108 VA 141 QRS 106 QTc 419 - EKG Results: EKG: interpreted by CARRILLO Past Medical History Past Medical History: Coronary Artery Disease (CAD), Cancer, Hyperlipidemia, Hypertension, Osteoarthritis (OA) Additional Past Medical History / Comment(s): steroid December 2018,IRREGULAR HEART RATE,no symptoms of gerd since becky procedure History of Any Multi-Drug Resistant Organisms: None Reported Past Surgical History: Appendectomy, Bowel Resection, Heart Catheterization With Stent, Hernia Repair, Joint Replacement, Orthopedic Surgery Additional Past Surgical History / Comment(s): 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 abd hernia X 2, R Hip replacement. BECKY PROCEDURES. TENDON REPAIRS. EXPLORATORY LAP. gastric resection Past Anesthesia/Blood Transfusion Reactions: No Reported Reaction Additional Past Anesthesia/Blood Transfusion Reaction / Comment(s): no hx blood transfusion Date of Last Stent Placement:: ? Past Psychological History: No Psychological Hx Reported Past Alcohol Use History: Occasional Past Drug Use History: None Reported - Past Family History Mother Family Medical History: Cancer Additional Family Medical History / Comment(s): liver CA General Exam Limitations: no limitations General appearance: alert, in no apparent distress, anxious Head exam: Present: atraumatic, normocephalic, normal inspection Eye exam: Present: normal appearance, PERRL, EOMI. Absent: scleral icterus, conjunctival injection, periorbital swelling ENT exam: Present: normal exam, mucous membranes moist Neck exam: Present: normal inspection. Absent: tenderness, meningismus, lymphadenopathy Respiratory exam: Present: normal lung sounds bilaterally. Absent: respiratory distress, wheezes, rales, rhonchi, stridor Cardiovascular Exam: Present: normal rhythm, tachycardia, normal heart sounds. Absent: systolic murmur, diastolic murmur, rubs, gallop, clicks GI/Abdominal exam: Present: soft, normal bowel sounds. Absent: distended, tenderness, guarding, rebound, rigid Extremities exam: Present: normal inspection, full ROM, normal capillary refill. Absent: tenderness, pedal edema, joint swelling, calf tenderness Back exam: Present: normal inspection Neurological exam: Present: alert, oriented X3, CN II-XII intact Psychiatric exam: Present: normal affect, normal mood Skin exam: Present: warm, dry, intact, normal color. Absent: rash Course Vital Signs 03/24/24 03/24/24 03/24/24 09:07 10:32 12:05 Temperature 98.3 F Pulse Rate 106 H 101 H 102 H Pulse Rate [ Fitness Consultant ] Respiratory 20 18 18 Rate Blood Pressure 168/104 158/114 176/109 Blood Pressure [Right Arm] O2 Sat by Pulse 97 97 Oximetry 03/24/24 03/24/24 03/24/24 12:19 12:23 13:22 Temperature Pulse Rate 76 76 81 Pulse Rate [ Fitness Consultant ] Respiratory 18 18 18 Rate Blood Pressure 152/102 140/91 168/99 Blood Pressure [Right Arm] O2 Sat by Pulse 97 95 96 Oximetry 03/24/24 03/24/24 03/24/24 17:24 18:19 20:00 Temperature 98 F 98.9 F Pulse Rate 104 H 93 Pulse Rate [ 101 H Fitness Consultant ] Respiratory 18 18 18 Rate Blood Pressure 159/102 153/92 Blood Pressure 165/98 [Right Arm] O2 Sat by Pulse 96 96 98 Oximetry 03/24/24 03/25/24 03/25/24 23:19 00:14 04:15 Temperature 98.6 F Pulse Rate Pulse Rate [ 98 98 Fitness Consultant ] Respiratory 18 18 Rate Blood Pressure Blood Pressure 145/89 140/86 141/84 [Right Arm] O2 Sat by Pulse 98 96 Oximetry 03/25/24 03/25/24 03/25/24 08:00 12:52 13:22 Temperature Pulse Rate 112 H 98 78 Pulse Rate [ Fitness Consultant ] Respiratory 18 18 18 Rate Blood Pressure 153/99 153/89 156/88 Blood Pressure [Right Arm] O2 Sat by Pulse 96 96 99 Oximetry - Reevaluation(s) Reevaluation #1: 03/24/24 14:07 Medical records reviewed Reevaluation #2: 03/24/24 14:07 Pain is escalating, increasing pain with increasing blood pressure Reevaluation #3: 03/24/24 14:07 Patient informed of results and questions answered Reevaluation #4: Was pt. sent in by a medical professional or institution (ALFA oM, PSYCHOLOGY TECHNICIAN, urgent care, hospital, or [facility]...) When possible be specific @ -no Did you speak to anyone other than the patient for history (EMS, parent, family, police, friend...)? What history was obtained from this source @ -no Did you review nursing and triage notes (agree or disagree)? Why? @ -agree Are old charts reviewed (outside hosp., previous admission, EMS record, old EKG, old radiological studies, urgent care reports/EKG's, [facility] records)? Report findings @ -yes Differential Diagnosis (chest pain, altered mental status, abdominal pain women, abdominal pain men, vaginal bleeding, weakness, fever, dyspnea, syncope, headache, dizziness, GI bleed, back pain, seizure, CVA, palpatations, mental health, musculoskeletal)? @ -prior EKG interpreted by me (3pts min.). @ -yes X-rays interpreted by me (1pt min.). @ -yes negative for acute disease CT interpreted by me (1pt min.). @ -no U/S interpreted by me (1pt. min.). @ -no What testing was considered but not performed or refused? (CT, X-rays, U/S, labs)? Why? @ -none What meds were considered but not given or refused? Why? @ -none Did you discuss the management of the patient with other professionals (gladis raygoza i.e. , ALFA, PSYCHOLOGY TECHNICIAN, lab, RT, psych nurse, social insurance adviser, rug hooker, teacher, environmental protection officer, case worker)? Give summary @ -no Was smoking cessation discussed for >3mins.? @ -no Was critical care preformed (if so, how long)? @ -no Were there social determinants of health that impacted care today? How? (Homelessness, low income, unemployed, alcoholism, drug addiction, transportation, low edu. Level, literacy, decrease access to med. care, prison, rehab)? @ -none Was there de-escalation of care discussed even if they declined (Discuss DNR or withdrawal of care, Hospice)? DNR status @ -no What co-morbidities impacted this encounter? (DM, HTN, Smoking, COPD, CAD, Cancer, CVA, ARF, Chemo, Hep., AIDS, mental health diagnosis, sleep apnea, morbid obesity)? @ -none Was patient admitted / discharged? Hospital course, mention meds given and route, prescriptions, significant lab abnormalities, going to OR and other pertinent info. @ - 73 male will be admitted for chest pain observation, observation for pain control with uncontrolled pain here in the ER Admitted Undiagnosed new problem with uncertain prognosis? @ -no Drug Therapy requiring intensive monitoring for toxicity (Heparin, Nitro, Insulin, Cardizem)? @ -no Were any procedures done? @ -no Diagnosis/symptom? @ -Chest pain Acute, or Chronic, or Acute on Chronic? @ -Acute Uncomplicated (without systemic symptoms) or Complicated (systemic symptoms)? @ -Complicated Side effects of treatment? @ -no Exacerbation, Progression, or Severe Exacerbation? @ -exacerbation Poses a threat to life or bodily function? How? (Chest pain, [place], [place], pneumonia, PE, COPD, DKA, ARF, appy, cholecystitis, CVA, Diverticulitis, Homicidal, Suicidal, threat to staff... and all critical care pts) @ -yes with chest pain Reevaluation #5: Differential Chest Pain: Stable Angina, Unstable Angina, STEMI, NSTEMI Aortic Dissection, Pneumothorax, Musculoskeletal, Esophageal Spasm GERD, Cholecystitis, Pancreatitis, Zoster, this is not meant to be an all-inclusive list. - Consultations Consultation #1: Spoke admitting physicians who agreed admit this patient Chest Pain MDM - [facility] 73 male will be admitted for chest pain observation, observation for pain control with uncontrolled pain here in the ER Disposition Clinical Impression: Chest pain, Cancer associated pain Disposition: ADMITTED IP TO THIS HOSP Condition: Fair Is patient prescribed a controlled substance at d/c from ED?: No Time of Disposition: 14:00
--- NOTE | 2024-03-24 10:03 | XR ---
EXAMINATION TYPE: XR chest 2V DATE OF EXAM: 03/24/2024 COMPARISON: NONE HISTORY: Shortness of breath TECHNIQUE: Frontal and lateral views of the chest are obtained. FINDINGS: Scattered senescent parenchymal changes noted. Hyperinflation compatible with COPD. No evidence for infiltrate. No evidence for atelectasis. Heart size is stable. Mediastinal structures are stable and grossly unremarkable. No evidence for hilar prominence. Degenerative changes dorsal spine. IMPRESSION: 1. No evidence for acute pulmonary disease. [facility], , 03/24/2024 10:01 AM
[2024-03-24 10:04] LABS: ALT 84 U/L (4-49); AST 123 U/L (17-59); African American GFR (CKD) >90 (>60 ml/min/1.73 sqM); Albumin 3.7 g/dL (3.5-5.0); Alkaline Phosphatase 509 U/L (38-126); Anion Gap 9 mmol/L; Blood Urea Nitrogen 14 mg/dL (9-20); Calcium 9.2 mg/dL (8.4-10.2); Carbon Dioxide 21 mmol/L (22-30); Chloride 106 mmol/L (98-107); Glucose 151 mg/dL (74-99); Non-African American GFR(CKD) 86 (>60 ml/min/1.73 sqM); Potassium 3.8 mmol/L (3.5-5.1); Sodium 136 mmol/L (137-145); Total Bilirubin 1.3 mg/dL (0.2-1.3); Total Protein 6.8 g/dL (6.3-8.2)
[2024-03-24 10:11] LABS: NT-Pro-B-Type Natriuretic Pept 125 pg/mL
[2024-03-24 10:33] VITALS: RESP 18
[2024-03-24] MEDS: HYDROmorphone 1 MG/ML 1 ML SYRINGE IVP STA ×2 (11:30→12:17)
[2024-03-24] MEDS: SODIUM CHLORIDE 0.9% 500 ML 500 ML IV STA (12:10)
[2024-03-24] MEDS: LABETALOL 5 MG/ML VIAL MDV IVP STA (12:14)
--- NOTE | 2024-03-24 13:14 | CT ---
EXAMINATION TYPE: CT angio chest CT DLP: 1225.8 mGycm, Automated exposure control for dose reduction was used. DATE OF EXAM: 03/24/2024 12:52 PM COMPARISON: Chest radiograph 03/24/2024 CLINICAL INDICATION:Male, 73 years old with history of pain; history of colon cancer with liver metas tasis. TECHNIQUE/CONTRAST: CTA scan of the thorax is performed without and with IV Contrast, patient injected with 100 ml mL of Isovue 370, pulmonary embolism protocol. MIP images are created and reviewed. FINDINGS: Pulmonary Artery: There is no evidence for a filling defect within the pulmonary vasculature to sugge st acute pulmonary embolism. The pulmonary artery is of normal size. Lungs/Pleura: No evidence of pleural effusion or pneumothorax. Dependent bilateral lower lobe minimal linear sessile atelectasis versus scarring. Mild centrilobular emphysematous changes. Left lower lob e pleural-based 1.2 cm pulmonary nodule (series 406, image 99). Airway: Large airways are patent. Heart: Heart is within normal limits for size.. No pericardial effusion. Vasculature: No evidence of aortic aneurysm. Anterior right chest wall Mediport catheter distal tip t erminating in the superior cavoatrial junction. Mediastinum: Enlarged right mammary lymph nodes largest measuring up to 1.8 cm (series 401, image 100 ). Enlarged right hilar lymph node measuring 1.1 cm (series 401, image 67). Enlarged subcarinal lymph node measuring 1.0 cm short axis (series 401, 66). Enlarged right paratracheal lymph node measuring 1.1 cm (series 401, and 36). Musculoskeletal: No acute osseous abnormalities. No aggressive osseous lesion. Mild multilevel degene rative disc disease. Soft Tissues: Unremarkable. Lower neck: No significant findings. Upper Abdomen: Please refer to dedicated CT abdomen and pelvis the same day for findings.. IMPRESSION: 1. No evidence of pulmonary embolism. 2. Mediastinal, right hilar, and right mammary lymphadenopathy consistent with metastatic disease. 3. Pleural-based left lower lobe 1.2 cm pulmonary nodule. May represent metastatic disease. Correlati on with prior imaging is recommended. 4. Please refer to dedicated CT abdomen pelvis of the same day for findings. [facility], , 03/24/2024 1:12 PM
--- NOTE | 2024-03-24 13:26 | CT ---
EXAMINATION TYPE: CT abdomen pelvis w con CT DLP: 1225.8 mGycm, Automated exposure control for dose reduction was used. DATE OF EXAM: 03/24/2024 12:53 PM COMPARISON: CT abdomen pelvis 03/30/2019 CLINICAL INDICATION:Male, 73 years old with history of pain; reported history of colon cancer with me tastasis to the liver. TECHNIQUE: Standard CT of the abdomen and pelvis following the administration of 100 cc of Isovue 3 00 IV contrast material. Coronal and sagittal reformats were performed. FINDINGS: LOWER CHEST: Please see dedicated CTA chest for findings ABDOMEN LIVER: Innumerable hypodense lesions throughout the liver with subcapsular retraction. Visualized por jett venous system appears patent. GALLBLADDER AND BILE DUCTS: The gallbladder appears surgically absent. Common bile duct is dilated me asuring up to 1.1 cm which is not expected in the setting of cholecystectomy. 4.9 cm cystic structure adjacent to the gallbladder fossa. May represent a cystic duct remnant. PANCREAS: Unremarkable. SPLEEN: Unremarkable. ADRENAL GLANDS: Unremarkable. KIDNEYS AND URETERS: No evidence of hydronephrosis. Nonobstructive right renal 3 mm calculus. Right r enal inferior 3.5 cm cyst. The kidneys enhance symmetrically. Contrast is demonstrated within both co llecting systems on the delayed phase. PELVIS BLADDER: Unremarkable REPRODUCTIVE: Prostate is enlarged in size measuring 4.8 cm in transverse dimension. ABDOMEN & PELVIS STOMACH AND BOWEL: Postsurgical changes of the GE junction. Drainage catheter identified within the a nterior left upper quadrant which enters the distal stomach and terminates in the mid duodenum. No tsang rrounding fluid at the pigtail portion in the left upper quadrant. Colonic anastomosis identified wit hin the anterior mid abdomen. Post surgical changes from partial colectomy. No focal bowel wall thick ening or surrounding inflammatory changes. No evidence of bowel obstruction. PERITONEUM: No evidence of pneumoperitoneum or free fluid. Surgical changes from left inguinal hernia repair. VASCULATURE: Moderate atherosclerotic calcifications are present throughout the abdominal aorta and i ts branches. No evidence of aortic aneurysm. Pelvic phleboliths. Common hepatic artery stent identifi ed. Appears patent. MUSCULOSKELETAL: No acute osseous abnormalities. Postsurgical changes from right total hip arthroplas ty. Gross osseous lesion. Mild multilevel degenerative disc disease. Grade 1 anterolisthesis of L4 on L5 without evidence of pars defects. LYMPH NODES: Multiple enlarged dean hepatis and retroperitoneal lymph nodes identified. Examples inc esthela mejia right para-aortic 3.8 cm lymph node (series 501, image 37). Additional one is in the dean hep atic region measuring 3.9 cm (series 501, image 21). These demonstrate ovoid appearance with some dem onstrating central necrosis. No inguinal lymphadenopathy. No pelvic lymphadenopathy identified. SOFT TISSUE/ABDOMINAL WALL: Postsurgical changes of the intra-abdominal wall multiple surgical clips identified. IMPRESSION: 1. Postsurgical changes of the colon with innumerable metastatic hepatic lesions and retroperitoneal lymphadenopathy. Correlation with prior imaging is recommended to assess for interval change. 2. Post surgical changes from cholecystectomy with cystic structure within the gallbladder fossa whic h may represent a cystic duct remnant. [facility], , 03/24/2024 1:24 PM
[2024-03-24] MEDS ORDERED: ONDANSETRON 4 MG/2 ML VIAL IVP PRN (14:05)
[2024-03-24] MEDS ORDERED: NALOXONE 0.4 MG/ML 1 ML VIAL IV PRN (14:05)
[2024-03-24] MEDS: HYDROmorphone 1 MG/ML 1 ML SYRINGE IVP PRN (14:17)
[2024-03-24] MEDS: SODIUM CHLORIDE 0.9% 1,000 ML IV SCH (14:21)
[2024-03-25] MEDS: hydrALAZINE HCL 50 MG TAB PO SCH (09:15)
[2024-03-25] MEDS: PANTOPRAZOLE 40 MG/10 ML VIAL IV SCH (09:15)
[2024-03-25] MEDS: amLODIPine 5 MG TAB PO SCH (09:15)
[2024-03-25 11:21] LABS: Basophils # (A) 0.02 X 10*3/uL (0.00-0.10); Basophils % (A) 0.3 %; Eosinophils # (A) 0.06 X 10*3/uL (0.04-0.35); Eosinophils % (A) 0.8 %; HCT 42.2 % (39.6-50.0); HGB 13.9 g/dL (13.0-17.0); Lymphocytes % (A) 21.9 %; MCHC 32.9 g/dL (32.0-37.0); MCV 87.9 FL (80.0-97.0); Mean Platelet Volume 11.2 FL (9.5-12.2); Monocytes # (A) 0.98 X 10*3/uL (0.20-1.00); Monocytes % (A) 13.4 %; NRBC Per 100 WBC 0 X 10*3/uL (0.00-0.01); Neutrophils # (A) 4.63 X 10*3/uL (1.80-7.70); Neutrophils % (A) 63.3 %; Platelet Count 161 X 10*3/uL (140-440); RDW 16.6 % (11.5-14.5); WBC 7.31 X 10*3/uL (4.50-10.00)
[2024-03-25 11:45] LABS: ALT 70 U/L (10-49); AST 101 U/L (14-35); Albumin 3.4 g/dL (3.8-4.9); Albumin/Globulin Ratio 1.36 Ratio (1.60-3.17); Alkaline Phosphatase 445 U/L (41-126); Blood Urea Nitrogen 10.8 mg/dL (9.0-27.0); Calcium 8.6 mg/dL (8.7-10.3); Carbon Dioxide 20.7 mmol/L (21.6-31.8); Chloride 104 mmol/L (96-109); Globulin 2.5 g/dL (1.6-3.3); Glucose 127 mg/dL (70-110); Magnesium 1.4 mg/dL (1.5-2.4); Potassium 3.8 mmol/L (3.5-5.5); Sodium 138 mmol/L (135-145); Total Bilirubin 1.1 mg/dL (0.3-1.2); Total Protein 5.9 g/dL (6.2-8.2)
[2024-03-25] MEDS: MORPHINE SULFATE ER 15 MG TABLET PO SCH (12:09)
[2024-03-25 14:26] VITALS: BP 124/76; PULSE 80; TEMP 98.4
[2024-03-25] MEDS: MAGNESIUM SULFATE-D5W PMX 1 GM in DEXTROSE/WATER 1 100ML.BAG IVPB SCH (14:42)
[2024-03-25] MEDS: POTASSIUM CHLORIDE ER 20 MEQ TAB.ER PO STA (14:42)
--- NOTE | 2024-04-09 23:23 | P.HPIM ---
History of Present Illness H&P Date: 03/25/24 Chief Complaint: Abdominal pain Patient is a 73-year-old male with a past medical history of hypertension, hyperlipidemia, colon cancer with mets to liver, coronary artery disease with history of stent placement, history of bowel resection and prior history of smoking presents to ER with complaints of severe abdominal pain and left-sided chest wall pain and back pain. Patient states that pain started when he was resting with sharp and tightness and constant worsens with movement to the right. Denied any complaints of fever or chills. No cough or sputum production. No nausea vomiting abdominal pain or diarrhea. Chest x-ray showed no evidence for acute pulmonary disease. EKG showed sinus tachycardia with heart rate 108 CTA chest was done showed no evidence of PE. Mediastinal, right hilar, right mammary lymphadenopathy consistent with metastatic disease. Pleural-based left lower lobe 1.2 cm pulmonary nodule. May represent metastatic disease. Correlate with prior imaging is recommended. CT of the abdomen pelvis showed postsurgical changes of the colon with innumerable metastatic hepatic lesions and retroperitoneal lymphadenopathy. Correlate with prior imaging is recommended to assess for interval change. Postsurgical changes from cholecystectomy with cystic structure within the gallbladder fossa which may represent a cystic duct remnant. Laboratory data showed WBC 6.3 hemoglobin 15.2 and platelets 183 sodium 136 potassium 3.8 chloride 106 bicarb is 21 BUN 14 and creatinine 0.83 and blood sugar 151. AST 123 ALT 84 and alk phos 509 Troponin x 2 negative and proBNP 125 Lipase 69 and albumin 3.4. Review of Systems Constitutional: Patient denies any fever or chills . No generalized weakness or weight loss. Abdomen: Patient denied nausea vomiting and diarrhea and abdominal pain. Cardiovascular: Patient denies any chest pain or short of breath no palpitations. Respiratory: patient denied any cough or sputum production. No shortness of breath Neurologic: Patient denied any numbness or tingling. no headache. Musculoskeletal: Patient denies any complaints of joint swelling or deformity. Skin: Negative Psychiatric: Negative Endocrine: No heat or cold intolerance. No recent weight gain. Genitourinary: No dysuria or hematuria. 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 abd hernia X 2, R Hip replacement. BECKY PROCEDURES. TENDON REPAIRS. EXPLORATORY LAP. gastric resection Past Anesthesia/Blood Transfusion Reactions: No Reported Reaction Additional Past Anesthesia/Blood Transfusion Reaction / Comment(s): no hx blood transfusion Date of Last Stent Placement:: ? Past Psychological History: No Psychological Hx Reported Smoking Status: Former smoker Past Alcohol Use History: Occasional Additional Past Alcohol Use History / Comment(s): QUIT SMOKING CIGARETTES 1972. NOW SMOKES CIGARS ON OCCASSION Past Drug Use History: None Reported - Past Family History Mother Family Medical History: Cancer Additional Family Medical History / Comment(s): liver CA Medications and Allergies Home Medications Medication Instructions Recorded Confirmed Type Aspirin [Adult Low Dose Aspirin EC] 81 mg PO DAILY 03/07/17 03/24/24 History Rosuvastatin Calcium [Crestor] 40 mg PO HS 03/07/17 03/24/24 History atenoloL [Tenormin] 12.5 mg PO DAILY 03/07/17 03/24/24 History Ferrous Sulfate [Iron (65 MG 325 mg PO DAILY 12/19/17 03/24/24 History Elemental)] Ubidecarenone [Co Q-10] 100 mg PO DAILY 12/19/17 03/24/24 History Multivitamins, Thera [Multivitamin 1 tab PO DAILY 01/22/19 03/24/24 History (formulary)] Acetaminophen Tab [Tylenol] 1,000 mg PO Q6HR PRN 03/24/24 03/24/24 History Calcium/Magnesium (Unknown Dose) 1 tab PO DAILY 03/24/24 03/24/24 History Ezetimibe [Zetia] 10 mg PO HS 03/24/24 03/24/24 History Glimepiride [Amaryl] 1 mg PO DAILY 03/24/24 03/24/24 History Glucosam/Pacheco-Msm1/C/Blu/Bosw 1 tab PO DAILY 03/24/24 03/24/24 History [Gzckwvnfpoy-Yjwsavytigw-BZA Tb] Ibuprofen [Motrin Ib] 400 mg PO BID 03/24/24 03/24/24 History Selpercatinib [Retevmo] 160 mg PO DIRECTED 03/24/24 03/24/24 History amLODIPine [Norvasc] 5 mg PO DAILY 03/24/24 03/24/24 History hydrALAZINE HCL [Apresoline] 50 mg PO TID 03/24/24 03/24/24 History ondansetron HCL [Zofran] 8 mg PO Q8H PRN 03/24/24 03/24/24 History traMADol HCl [Ultram] 50 mg PO BID 03/24/24 03/24/24 History Morphine Sulfate ER [Ms Contin] 15 mg PO Q12HR 7 Days #14 tab 03/25/24 Rx Sennosides/Docusate Sodium 1 each PO HS PRN #20 tablet 03/25/24 Rx [Senna-S 8.6-50 mg Tablet] Allergies Allergy/AdvReac Type Severity Reaction Status Date / Time No Known Allergies Allergy Verified 03/24/24 11:52 Physical Exam Vitals: Vital Signs Temp Pulse Pulse Resp BP BP Pulse Ox 03/25/24 08:00 112 H 18 153/99 96 03/25/24 04:15 98 18 141/84 96 03/25/24 00:14 98.6 F 98 18 140/86 98 03/24/24 23:19 145/89 03/24/24 20:00 98.9 F 101 H 18 165/98 98 03/24/24 18:19 93 18 153/92 96 03/24/24 17:24 98 F 104 H 18 159/102 96 03/24/24 13:22 81 18 168/99 96 03/24/24 12:23 76 18 140/91 95 03/24/24 12:19 76 18 152/102 97 03/24/24 12:05 102 H 18 176/109 Intake and Output 03/24/24 03/25/24 03/25/24 22:59 06:59 14:59 Output Total 400 Balance -400 Output: Urine 400 Other: Voiding Method Urinal # Voids 1 # Bowel Movements 1 Weight 78.471 kg PHYSICAL EXAMINATION: Patient is lying in the bed comfortably, no acute distress, awake alert and oriented.. HEENT: Normocephalic. Neck is supple. Pupils reactive. Nostrils clear. Oral cavity is moist. Neck reveals no JVD, carotid bruits, or thyromegaly. CHEST EXAMINATION: Trachea is central. Symmetrical expansion. Lung crisostomo clear to auscultation and percussion. CARDIAC: Normal S1, S2 with no gallops. No murmurs ABDOMEN: Soft. Bowel sounds normal. No organomegaly. No abdominal bruits. Extremities: reveal no edema. No clubbing or cyanosis Neurologically awake, alert, oriented x3 with well-coordinated movements. No focal deficits noted Skin: No rash or skin lesions. Psychiatric: Coperative. Nonsuicidal Musculoskeletal: No joint swelling or deformity. Normal range of motion. Results CBC & Chem 7: 03/25/24 06:44 03/25/24 06:44 Thrombosis Risk Factor Assmnt - DVT/VTE Prophylaxis DVT/VTE Prophylaxis: Pharmacologic Prophylaxis ordered - Choose All That Apply Any of the Below Risk Factors Present?: No Other Risk Factors: Yes Each Risk Factor Represents 3 Points: Age 75 years or older Thrombosis Risk Factor Assessment Total Risk Factor Score: 3 Thrombosis Risk Factor Assessment Level: Moderate Risk Assessment and Plan Assessment: Intractable back pain, left-sided chest pain and abdominal pain. Likely due to metastatic disease. Elevated liver enzymes due to hepatic metastatic lesions. Colon cancer metastatic with pulmonary, hepatic and lymph retroperitoneal metastatic lesions. Prior history of colectomy. Coronary artery disease*stent placement Hypertension Bulimia Osteoarthritis Prior history of smoking DVT prophylaxis. Plan: Patient will be continued on pain management with IV Dilaudid 1 mg every 3 hourly and continue with IV hydration. Patient's blood pressure was elevated on admission. Started back on home medications including atenolol and hydralazine and amlodipine. Blood pressure is currently improved. Continue with other home medications. Patient would like to be discharged home today. Prognosis is guarded at this time. Time with Patient: Greater than 30
--- NOTE | 2024-04-09 23:24 | P.DS ---
Providers Date of admission: 03/24/24 14:06 Expected date of discharge: 03/25/24 Attending physician: Stephanie Osorio Primary care physician: Natalie Thornton Hospital Course: Discharge diagnosis Intractable back pain, left-sided chest pain and abdominal pain. Likely due to metastatic disease. Improved with pain management. Elevated liver enzymes due to hepatic metastatic lesions. Colon cancer metastatic with pulmonary, hepatic and lymph retroperitoneal metastatic lesions. Prior history of colectomy. Coronary artery disease*stent placement Hypertension Bulimia Osteoarthritis Prior history of smoking DVT prophylaxis. Hospital course Patient is a 73-year-old male with a past medical history of hypertension, hyperlipidemia, colon cancer with mets to liver, coronary artery disease with history of stent placement, history of bowel resection and prior history of smoking presents to ER with complaints of severe abdominal pain and left-sided chest wall pain and back pain. Patient states that pain started when he was resting with sharp and tightness and constant worsens with movement to the right. Denied any complaints of fever or chills. No cough or sputum production. No nausea vomiting abdominal pain or diarrhea. Chest x-ray showed no evidence for acute pulmonary disease. EKG showed sinus tachycardia with heart rate 108 CTA chest was done showed no evidence of PE. Mediastinal, right hilar, right mammary lymphadenopathy consistent with metastatic disease. Pleural-based left lower lobe 1.2 cm pulmonary nodule. May represent metastatic disease. Correlate with prior imaging is recommended. CT of the abdomen pelvis showed postsurgical changes of the colon with innumerable metastatic hepatic lesions and retroperitoneal lymphadenopathy. Correlate with prior imaging is recommended to assess for interval change. Postsurgical changes from cholecystectomy with cystic structure within the gallbladder fossa which may represent a cystic duct remnant. Laboratory data showed WBC 6.3 hemoglobin 15.2 and platelets 183 sodium 136 potassium 3.8 chloride 106 bicarb is 21 BUN 14 and creatinine 0.83 and blood sugar 151. AST 123 ALT 84 and alk phos 509 Troponin x 2 negative and proBNP 125 Lipase 69 and albumin 3.4. Patient was continued on pain management with IV Dilaudid 1 mg every 3 hourly and continue with IV hydration. Patient's blood pressure was elevated on admission. Started back on home medications including atenolol and hydralazine and amlodipine. Patient was initially given labetalol IV in the ER. Blood pressure is currently improved. Continued with other home medications. Patient would like to be discharged home today. Patient was recommended to follow-up with primary care physician and oncology as an outpatient. Prognosis is guarded at this time. Discharge physical examination was done and vitals reviewed. Patient Condition at Discharge: Fair Plan - Discharge Summary New Discharge Prescriptions: New Morphine Sulfate ER [Ms Contin] 15 mg PO Q12HR 7 Days #14 tab Sennosides/Docusate Sodium [Senna-S 8.6-50 mg Tablet] 1 each PO HS PRN #20 tablet PRN Reason: Constipation Continue Rosuvastatin Calcium [Crestor] 40 mg PO HS atenoloL [Tenormin] 12.5 mg PO DAILY Aspirin [Adult Low Dose Aspirin EC] 81 mg PO DAILY Ferrous Sulfate [Iron (65 MG Elemental)] 325 mg PO DAILY Ubidecarenone [Co Q-10] 100 mg PO DAILY Multivitamins, Thera [Multivitamin (formulary)] 1 tab PO DAILY Ezetimibe [Zetia] 10 mg PO HS traMADol HCl [Ultram] 50 mg PO BID Ibuprofen [Motrin Ib] 400 mg PO BID Acetaminophen Tab [Tylenol] 1,000 mg PO Q6HR PRN PRN Reason: Pain Selpercatinib [Retevmo] 160 mg PO DIRECTED Glucosam/Pacheco-Msm1/C/Blu/Bosw [Yjjwbipaopa-Dixbmwukxar-XAK Tb] 1 tab PO DAILY Glimepiride [Amaryl] 1 mg PO DAILY ondansetron HCL [Zofran] 8 mg PO Q8H PRN PRN Reason: Nausea And Vomiting hydrALAZINE HCL [Apresoline] 50 mg PO TID amLODIPine [Norvasc] 5 mg PO DAILY Calcium/Magnesium (Unknown Dose) 1 tab PO DAILY Discharge Medication List Aspirin [Adult Low Dose Aspirin EC] 81 mg PO DAILY 03/07/17 [History] Rosuvastatin Calcium [Crestor] 40 mg PO HS 03/07/17 [History] atenoloL [Tenormin] 12.5 mg PO DAILY 03/07/17 [History] Ferrous Sulfate [Iron (65 MG Elemental)] 325 mg PO DAILY 12/19/17 [History] Ubidecarenone [Co Q-10] 100 mg PO DAILY 12/19/17 [History] Multivitamins, Thera [Multivitamin (formulary)] 1 tab PO DAILY 01/22/19 [History] Acetaminophen Tab [Tylenol] 1,000 mg PO Q6HR PRN 03/24/24 [History] Calcium/Magnesium (Unknown Dose) 1 tab PO DAILY 03/24/24 [History] Ezetimibe [Zetia] 10 mg PO HS 03/24/24 [History] Glimepiride [Amaryl] 1 mg PO DAILY 03/24/24 [History] Glucosam/Pacheco-Msm1/C/Blu/Bosw [Wxlvfrswefq-Wbwfgrxkxra-BOS Tb] 1 tab PO DAILY 03/24/24 [History] Ibuprofen [Motrin Ib] 400 mg PO BID 03/24/24 [History] Selpercatinib [Retevmo] 160 mg PO DIRECTED 03/24/24 [History] amLODIPine [Norvasc] 5 mg PO DAILY 03/24/24 [History] hydrALAZINE HCL [Apresoline] 50 mg PO TID 03/24/24 [History] ondansetron HCL [Zofran] 8 mg PO Q8H PRN 03/24/24 [History] traMADol HCl [Ultram] 50 mg PO BID 03/24/24 [History] Morphine Sulfate ER [Ms Contin] 15 mg PO Q12HR 7 Days #14 tab 03/25/24 [Rx] Sennosides/Docusate Sodium [Senna-S 8.6-50 mg Tablet] 1 each PO HS PRN #20 tablet 03/25/24 [Rx] Follow up Appointment(s)/Referral(s): Natalie Thornton MD [Primary Care Provider] - 1-2 days Patient Instructions/Handouts: Morphine, Slow Release (By mouth), Senna (By mouth), Chronic Pain (DC) Activity/Diet/Wound Care/Special Instructions: Patient to follow-up with Dr. Harmon (Oncologist) next as previously scheduled. Discharge Disposition: HOME SELF-CARE
== END 2024-03-25 17:23 | disposition home or self-care (01) | DRG 948 ==
LOC: EC 09:00 → 5NMEDONC 14:06
PROVIDERS: ADMIT Hospitalist; ATTEND Hospitalist
DX: G89.3 Neoplasm related pain (acute) (chronic) (principal); C78.6 Secondary malignant neoplasm of retroperitoneum and peritoneum; F50.20 Bulimia nervosa, unspecified; C78.7 Secondary malignant neoplasm of liver and intrahepatic bile duct; C18.9 Malignant neoplasm of colon, unspecified; I10 Essential (primary) hypertension; M19.90 Unspecified osteoarthritis, unspecified site; F17.290 Nicotine dependence, other tobacco product, uncomplicated; E78.5 Hyperlipidemia, unspecified; I25.10 Atherosclerotic heart disease of native coronary artery without angina pectoris; R91.1 Solitary pulmonary nodule; Z96.641 Presence of right artificial hip joint; Z79.82 Long term (current) use of aspirin; Z79.84 Long term (current) use of oral hypoglycemic drugs; Z79.899 Other long term (current) drug therapy; Z95.5 Presence of coronary angioplasty implant and graft; Z90.49 Acquired absence of other specified parts of digestive tract; Z68.24 Body mass index [BMI] 24.0-24.9, adult
CPT/HCPCS: 36415; 71046; 71275; 74177; 80053; 83605; 83690; 83735; 83880; 84100; 84484; 85025; 85610; 85730; 93005; 96361; 96374; 96375; 96376; 99285